=== PATIENT | female | born 1935 | race Caucasian/White ===

== ENCOUNTER 2020-05-23 19:04 | Observation (INO) | payer OTHER, SELFPAY ==
[2020-05-23] VITALS (20 sets, daily range): BP systolic 195–243; BP diastolic 81–149; PULSE 56–67; RESP 13–24; TEMP 36.6; O2SAT 95–99; BMI 23.5
--- NOTE | 2020-05-23 19:10 | DI.RAD.S_ITS ---
PROCEDURE: XR CHEST 1V INDICATIONS: syncope TECHNIQUE: One view of the chest was acquired. COMPARISON: None. FINDINGS: Surgical changes and devices: Heart valve device noted. Lungs and pleura: Diffuse interstitial prominence. No focal consolidation. No pleural effusions or pneumothorax. Mediastinum: Mediastinal contours appear normal. Heart size is normal. Bones and chest wall: No suspicious bony lesions. Overlying soft tissues appear unremarkable. Chronic appearing rib fracture deformities of lateral right ribs. IMPRESSION: Diffuse interstitial prominence which may represent infectious/inflammatory process or possible early pulmonary edema if clinically appropriate. No focal consolidation. Dictated by: Jarvis Kim M.D. on 05/23/2020 at 20:00 Approved by: Jarvis Kim M.D. on 05/23/2020 at 20:02
[2020-05-23 19:25] LABS: Add Manual Diff / Slide Review NO; Basophils Absolute Auto 100 /uL (0-100); Basophils Percent Auto 1.3 % (0-2); Eosinophils Absolute Auto 700 /uL (0-450); Eosinophils Percent Auto 6.5 % (2-4); Hematocrit 34.6 % (36-46); Hemoglobin 12.2 g/dL (12.0-16.0); Lymphocytes Absolute Auto 2100 /uL (1100-4500); Lymphocytes Percent Auto 19.8 % (25-40); Mean Corpuscular HGB Conc 35.1 % (30-36); Mean Corpuscular Hemoglobin 30.7 PG (26-34); Mean Corpuscular Volume 87.3 fL (80-100); Monocytes Absolute Auto 800 /uL (0-900); Monocytes Percent Auto 7.6 % (3-14); Neutrophils Absolute Auto 6700 /uL (1500-7000); Neutrophils Percent Auto 64.8 % (50-75); Platelet Count 227 X10^3/uL (150-400); Red Blood Cell Count 3.96 X10^6/uL (4.0-5.2); White Blood Cell Count 10.4 X10^3/uL (4.5-11.0)
[2020-05-23] MEDS: SODIUM CHLORIDE 0.9% 1,000 ML 1000 ML IV (19:28)
[2020-05-23 19:33] LABS: Prothrombin Time 11.9 SECONDS (10.1-12.7)
[2020-05-23 19:36] LABS: D Dimer 622 ng/mL (<230); Lactate (Lactic Acid) 1.3 mmol/L (0.7-2.1)
[2020-05-23 19:38] LABS: Alanine Aminotransferase 16 IU/L (<35); Albumin 4.1 g/dL (3.5-5.0); Albumin Globulin Ratio 1.3 (1.0-2.8); Alkaline Phosphatase 142 U/L (38-126); Aspartate Aminotransferase 20 IU/L (14-36); BUN Creatinine Ratio 26.3 (6-22); Bilirubin Total 0.5 mg/dL (0.2-1.3); Blood Urea Nitrogen 21 mg/dL (7-17); Calcium 9.2 mg/dL (8.4-10.2); Carbon Dioxide 25 mmol/L (22-32); Chloride 100 mmol/L (98-107); Creatine Kinase 71 U/L (30-135); Estimated Glomerular Filt Rate > 60.0 mL/min (>60); Globulin 3.1 g/dL (1.7-4.1); Glucose 153 mg/dL (80-110); HEMOLYSIS < 15 (0-50); Magnesium 2.1 mg/dL (1.6-2.3); Sodium 132 mmol/L (137-145); Total Protein 7.2 g/dL (6.3-8.2)
--- NOTE | 2020-05-23 19:44 | DI.CT.S_ITS ---
PROCEDURE: CT HEAD/BRAIN WO CON INDICATIONS: syncope, dizziness TECHNIQUE: Noncontrast 4.5 mm thick angled axial sections acquired from the foramen magnum to the vertex, with coronal and sagittal reformats. For radiation dose reduction, the following was used: automated exposure control, adjustment of mA and/or kV according to patient size. COMPARISON: None. FINDINGS: Image quality: Excellent. CSF spaces: Basal cisterns are patent. No extra-axial fluid collections. The ventricles are symmetric in size and shape. Brain: No intracranial bleeds or masses. There is cerebral volume loss for age, with resultant ventricular and sulcal prominence. There are periventricular and deep white matter chronic small vessel ischemic changes. There is intracranial internal carotid artery atherosclerosis. Skull and face: Calvarium and visualized facial bones appear intact, without suspicious lesions. Sinuses: Visualized sinuses and mastoids are clear. IMPRESSION: 1. CT head without acute intracranial abnormalities or acute calvarial fractures. 2. Age-related senescent changes and sequela of chronic small vessel ischemic disease. Dictated by: Jarvis Kmi M.D. on 05/23/2020 at 20:13 Approved by: Jarvis Kim M.D. on 05/23/2020 at 20:14
[2020-05-23 19:49] LABS: NT-proBNP (BNP-Adult 18+) 536 pg/mL (<450); Troponin I 0.013 ng/mL (0.01-0.034)
--- NOTE | 2020-05-23 19:55 | ED_ITS ---
HPI - Syncope General Chief Complaint: Syncope Stated Complaint: syncope Time Seen by Provider: 05/23/20 19:08 Source: patient Mode of arrival: Ambulatory Limitations: no limitations History of Present Illness HPI narrative: 85-year-old female nonsmoker with a history of aortic stenosis, valve repair, coronary artery disease with 2 stents presents with a chief complaint of a witnessed, unprovoked syncopal episode just prior to arrival. She presents by EMS with stable vital signs and is largely in the absence of any symptoms. She had been in her normal state of health with no complaints up until the episode. She denies any changes in her medications or diet. She denies any recent head injuries or trauma. She has had no fever, sore throat, cough, chest pain or shortness of breath. She has been a bit constipated but denies any urinary complaints or diarrhea. Had been standing in the kitchen cooking when she very briefly felt dizzy and lightheaded and called out to her family who used her to the ground and state that she completely lost consciousness for upwards of 2 minutes. Upon waking she relatively quickly returned to her baseline. She did not demonstrate any seizure-like activity. She has not had any upper respiratory complaints such as runny nose, sore throat or ear pain. MD complaint: loss of consciousness and felt faint Onset (ago): minute(s) Duration of episode: 2 -: minutes(s) Prodromal symptoms: lightheaded Witnessed: yes - by bystander Context: other Injuries sustained associated with event: none Current symptoms: back to baseline Treatments prior to arrival: none Related Data Home Medications Medication Instructions Recorded Confirmed amlodipine 2.5 mg PO BEDTIME 05/23/20 05/23/20 aspirin [Adult Aspirin] 300 mg PO DAILY 05/23/20 05/23/20 diltiazem HCl 180 mg PO DAILY 05/23/20 05/23/20 losartan 50 mg PO DAILY 05/23/20 05/23/20 magnesium 500 mg PO DAILY 05/23/20 05/23/20 metformin 500 mg PO DAILY 05/23/20 05/23/20 oxcarbazepine [Oxtellar XR] 600 mg PO DAILY 05/23/20 05/23/20 oxybutynin chloride 10 mg PO DAILY 05/23/20 05/23/20 Allergies Allergy/AdvReac Type Severity Reaction Status Date / Time codeine Allergy Verified 05/23/20 19:27 Review of Systems Constitutional Constitutional: Denies chills, Denies fatigue, Denies fever(s), Denies frequent falls, Denies lethargy and Denies weakness Eyes Eyes: Denies change in vision, Denies eye discharge, Denies irritation and Denies loss of vision ENT Ears, Nose, Mouth, and Throat: Denies change in voice, Reports dizziness, Denies neck pain, Denies sore throat and Denies throat swelling Cardiovascular Cardiovascular: Denies chest pain, Reports syncope, Denies irregular heart rhythm, Reports lightheadedness, Denies palpitations, Denies dyspnea, Denies dyspnea on exertion and Denies orthopnea Respiratory Respiratory: Denies cough, Denies dyspnea, Denies dyspnea on exertion and Denies wheezing Gastrointestinal Gastrointestinal: Denies abdominal pain, Denies change in bowel habits, Denies diarrhea, Denies nausea and Denies vomiting Musculoskeletal Musculoskeletal: Denies neck pain and Denies numbness Integumentary/Breasts Skin/Breast: Denies pruritus, Denies erythema, Denies rash and Denies wounds Neurologic Neurologic: Denies behavioral changes, Denies confusion, Reports dizziness, Reports syncope, Denies frequent falls, Denies loss of vision, Denies numbness and Denies weakness Psychiatric Psychiatric: Denies anxiety, Denies behavioral changes, Denies confusion, Denies depression, Denies homicidal ideation and Denies suicidal ideation Endocrine Endocrine: Denies fatigue, Denies flushing and Denies palpitations Hematologic/Lymphatic Hematologic/Lymphatic: Denies easy bruising Allergic/Immunologic Allergic/Immunologic: Denies urticaria, Denies throat swelling and Denies wheezing Patient History Medical History CAD (coronary artery disease) Urinary incontinence Surgical History History of ankle surgery History of hip surgery History of transcatheter aortic valve replacement (TAVR) Hx of heart artery stent Family History Mother Myocardial infarction Alcoholism Father Myocardial infarction Alcoholism Tobacco use Social History (Updated 05/24/20 @ 00:41 by SOM Barlow) marital status: household members: children lives independently: Yes housing: house pets and animals: Yes Previous occupational history: employment office clerk other: Dog seatbelt use: always Smoking Status: Never smoker alcohol intake: current Smoking Status: Never smoker alcohol intake frequency: holidays/special occasions only Substance Use Type: does not use Exam Narrative Exam Narrative: GENERAL: [85] year old patient appears stated age. Well-nou rished, well-developed patient, in mild distress. HEAD: Atraumatic. Normocephalic. EYES: Pupils equal round and reactive. Extraocular motions intact. No scleral icterus. No injection or drainage. ENT: Dry mucous membranes Nose without bleeding, purulent drainage. Throat without erythema, tonsillar hypertrophy or exudate. Airway patent. NECK: Trachea midline. Non tender CARDIOVASCULAR: Regular rate and rhythm without murmurs, gallops, or rubs. RESPIRATORY: Clear to auscultation. Breath sounds equal bilaterally. No wheezes, rales, or rhonchi. GASTROINTESTINAL: Abdomen soft, non-tender, nondistended. EXTREMITIES: No edema or joint tenderness. BACK: Nontender without deformity or crepitance. No flank tenderness. NEURO: AOx3. SKIN: Poor skin turgor No rash or erythema of visible areas Initial Vital Signs Initial Vital Signs: Vital Signs Temperature 97.9 F 05/23/20 19:19 Pulse Rate 66 05/23/20 19:19 Respiratory Rate 24 05/23/20 19:19 Blood Pressure 225/104 H 05/23/20 19:19 Pulse Oximetry 98 05/23/20 19:19 Course Orders Ordered: ED Orders 05/23/20 19:44 CT head/brain wo con Stat 05/23/20 19:47 COVID19 Stat 05/23/20 20:26 EKG-12 Lead Stat 05/23/20 20:38 CT angio chest PE protocol Stat Acetaminophen (Acetaminophen 325 Mg Tablet) 650 mg PO Q6HR PRN PRN Reason: Fever/Mild Pain (1-3) Amlodipine Besylate (Amlodipine 5 Mg Tablet) 2.5 mg PO BEDTIME [facility] Aspirin (Aspirin Ec 325 Mg Tablet) 325 mg PO DAILY [facility] Dextrose (Dextrose 50 % In Water 25 Gm/50 Ml Syringe) 25 gm IV PRN PRN PRN Reason: Hypoglycemia Diltiazem HCl (Diltiazem Cd 180 Mg Cap) 180 mg PO DAILY [facility] Last Admin: 05/24/20 02:00 Dose: 180 mg Documented by: CLIFF Enoxaparin Sodium (Enoxaparin 40 Mg/0.4 Ml Syringe) 40 mg SUBCUT DAILY [facility] Sodium Chloride (Normal Saline 0.9%) 1,000 mls @ 1,000 mls/hr IV BOLUS PRN PRN Reason: Fluid replacement Last Infusion: 05/24/20 00:05 Dose: 0 mls/hr Documented by: Infusion: 05/23/20 20:31 Dose: 30 mls/hr Documented by: Admin: 05/23/20 19:28 Dose: 1,000 mls/hr Documented by: BASSAM Insulin Aspart (Insulin Aspart 100 Unit/Ml Insuln Pen) 0 unit SUBCUT ACHS [facility]; Protocol Losartan Potassium (Losartan 50 Mg Tablet) 50 mg PO DAILY [facility] Naloxone HCl (Naloxone 0.4 Mg/Ml Vial) 0.2 mg IV Q2MIN PRN PRN Reason: Opiate Reversal Ondansetron HCl (Ondansetron 4 Mg/2 Ml Inj) 4 mg IV Q8HR PRN PRN Reason: Nausea And Vomiting Oxybutynin Chloride (Oxybutynin 5 Mg Er Tab) 10 mg PO DAILY [facility] Discontinued Medications Amlodipine Besylate (Amlodipine 5 Mg Tablet) 2.5 mg PO NOW ONE Stop: 05/23/20 20:38 Last Admin: 05/23/20 20:46 Dose: 2.5 mg Documented by: BASSAM Sodium Chloride (Normal Saline 0.9%) 1,000 mls @ 100 mls/hr IV CONT [facility] Losartan Potassium (Losartan 50 Mg Tablet) 50 mg PO NOW ONE Stop: 05/23/20 21:33 Last Admin: 05/23/20 21:46 Dose: 50 mg Documented by: BASSAM Non-Formulary Medication (Aspirin) 300 mg PO DAILY [facility] Vital Signs Vital signs: Vital Signs - 8 hr 05/23/20 21:10 05/23/20 21:19 05/23/20 21:21 Pulse Rate 60 67 63 Respiratory Rate 21 20 Blood Pressure 243/149 H 221/94 H Pulse Oximetry 98 96 98 05/23/20 21:30 05/23/20 21:31 05/23/20 21:46 Pulse Rate 60 59 L Respiratory Rate 24 17 Blood Pressure 221/97 H 221/97 H Pulse Oximetry 98 98 05/23/20 22:00 05/23/20 22:01 05/23/20 22:30 Pulse Rate 56 L 56 L 59 L Respiratory Rate 14 13 23 Blood Pressure 195/81 H Pulse Oximetry 99 99 95 05/23/20 22:31 05/23/20 22:39 05/23/20 23:00 Pulse Rate 59 L 60 61 Respiratory Rate 22 19 22 Blood Pressure 208/86 H Pulse Oximetry 95 98 95 05/23/20 23:01 Pulse Rate 61 Respiratory Rate 20 Blood Pressure 202/86 H Pulse Oximetry 95 MDM - Syncope Lab Data Result diagrams: 05/24/20 03:43 05/24/20 03:43 Labs: Lab Results 05/23/20 05/23/20 05/23/20 Range/Units 19:18 19:18 19:18 WBC 10.4 (4.5-11.0) X10^3/uL RBC 3.96 L (4.0-5.2) X10^6/uL Hgb 12.2 (12.0-16.0) g/dL Hct 34.6 L (36-46) % MCV 87.3 (80-100) fL MCH 30.7 (26-34) PG MCHC 35.1 (30-36) % RDW 14.0 (11.6-14.8) % Plt Count 227 (150-400) X10^3/uL Neut % (Auto) 64.8 (50-75) % Lymph % (Auto) 19.8 L (25-40) % [place] % (Auto) 7.6 (3-14) % Eos % (Auto) 6.5 H (2-4) % Baso % (Auto) 1.3 (0-2) % Neut # (Auto) 6700 (0095-4519) /uL Lymph # (Auto) 2100 (5704-0592) /uL [place] # (Auto) 800 (0-900) /uL Eos # (Auto) 700 H (0-450) /uL Baso # (Auto) 100 (0-100) /uL PT 11.9 (10.1-12.7) SECONDS INR 1.0 (0.9-1.3) D-Dimer 622 H (<230) ng/mL Sodium 132 L (137-145) mmol/L Potassium 4.0 (3.4-5.1) mmol/L Chloride 100 (98-107) mmol/L Carbon Dioxide 25 (22-32) mmol/L BUN 21 H (7-17) mg/dL Creatinine 0.80 (0.52-1.04) mg/dL Estimated GFR > 60.0 (>60) mL/min BUN/Creatinine Ratio 26.3 H (6-22) Glucose 153 H (80-110) mg/dL Hemoglobin A1c (4.0-6.0) % Lactate (0.7-2.1) mmol/L Calcium 9.2 (8.4-10.2) mg/dL Magnesium 2.1 (1.6-2.3) mg/dL Total Bilirubin 0.5 (0.2-1.3) mg/dL AST 20 (14-36) IU/L ALT 16 (<35) IU/L Alkaline Phosphatase 142 H (38-126) U/L Total Creatine Kinase 71 (30-135) U/L CK-MB (CK-2) TNP CK-MB (CK-2) Rel Index TNP Troponin I 0.013 (0.01-0.034) ng/mL NT-Pro-B Natriuret Pep 536 H (<450) pg/mL Total Protein 7.2 (6.3-8.2) g/dL Albumin 4.1 (3.5-5.0) g/dL Globulin 3.1 (1.7-4.1) g/dL Albumin/Globulin Ratio 1.3 (1.0-2.8) COVID-19 PCR (Negative) 05/23/20 05/23/20 05/23/20 Range/Units 19:18 19:18 19:47 WBC (4.5-11.0) X10^3/uL RBC (4.0-5.2) X10^6/uL Hgb (12.0-16.0) g/dL Hct (36-46) % MCV (80-100) fL MCH (26-34) PG MCHC (30-36) % RDW (11.6-14.8) % Plt Count (150-400) X10^3/uL Neut % (Auto) (50-75) % Lymph % (Auto) (25-40) % [place] % (Auto) (3-14) % Eos % (Auto) (2-4) % Baso % (Auto) (0-2) % Neut # (Auto) (4623-0565) /uL Lymph # (Auto) (5566-1970) /uL [place] # (Auto) (0-900) /uL Eos # (Auto) (0-450) /uL Baso # (Auto) (0-100) /uL PT (10.1-12.7) SECONDS INR (0.9-1.3) D-Dimer (<230) ng/mL Sodium (137-145) mmol/L Potassium (3.4-5.1) mmol/L Chloride (98-107) mmol/L Carbon Dioxide (22-32) mmol/L BUN (7-17) mg/dL Creatinine (0.52-1.04) mg/dL Estimated GFR (>60) mL/min BUN/Creatinine Ratio (6-22) Glucose (80-110) mg/dL Hemoglobin A1c 6.2 H (4.0-6.0) % Lactate 1.3 (0.7-2.1) mmol/L Calcium (8.4-10.2) mg/dL Magnesium (1.6-2.3) mg/dL Total Bilirubin (0.2-1.3) mg/dL AST (14-36) IU/L ALT (<35) IU/L Alkaline Phosphatase (38-126) U/L Total Creatine Kinase (30-135) U/L CK-MB (CK-2) CK-MB (CK-2) Rel Index Troponin I (0.01-0.034) ng/mL NT-Pro-B Natriuret Pep (<450) pg/mL Total Protein (6.3-8.2) g/dL Albumin (3.5-5.0) g/dL Globulin (1.7-4.1) g/dL Albumin/Globulin Ratio (1.0-2.8) COVID-19 PCR Negative (Negative) Point of Care Testing Glucose POC [address] scan - head: Radiologist's Impression: 25 Arash Schilling, DO Find Patient Imaging - Nubia Rubio 85 F 1935 ACTIVITY DATE EXAM STATUS AUTHOR 05/23/20 19:44 Signed Jarvis Kim 05/23/20 19:10 Signed Kim,Jarvis [address] [id number] Scan ReportSigned Patient: Shabnam Rubio#: [id number]: 1935cct:[id number]/Sex: 85 / FDate of Service: 05/23/20Loc: EDAccession Number: [id number] Procedure: CT head/brain wo con Ordering Provider: Arash Schilling D.O. PROCEDURE: CT HEAD/BRAIN WO CON INDICATIONS: syncope, dizziness TECHNIQUE: Noncontrast 4.5 mm thick angled axial sections acquired from the foramen magnum to the vertex, with coronal and sagittal reformats. For radiation dose reduction, the following was used: automated exposure control, adjustment of mA and/or kV according to patient size. COMPARISON: None. FINDINGS: Image quality: Excellent. CSF spaces: Basal cisterns are patent. No extra-axial fluid collections. The ventricles are symmetric in size and shape. Brain: No intracranial bleeds or masses. There is cerebral volume loss for age, with resultant ventricular and sulcal prominence. There are periventricular and deep white matter chronic small vessel ischemic changes. There is intracranial internal carotid artery atherosclerosis. Skull and face: Calvarium and visualized facial bones appear intact, without suspicious lesions. Sinuses: Visualized sinuses and mastoids are clear. IMPRESSION: 1. CT head without acute intracranial abnormalities or acute calvarial fractures. 2. Age-related senescent changes and sequela of chronic small vessel ischemic disease. Dictated by: Jarvis Kim M.D. on 05/23/2020 at 20:13 Approved by: Jarvis Kim M.D. on 05/23/2020 at 20:14 Chest x-ray: Radiologist's Impression: Chart Viewer Diagnostics DATE TYPE STATUS REF RANGE/AUTHOR Hx Today 19:44 Jarvis Kim Today 19:10 Jarvis Kim Zee Rubiovia 85, F1 REG ER, Main ED R10 170.18cm 68.039kg BMI: 23.5kg/m? Syncope Search Chart No Data to Display No Data to Display No Data to Display Today 20:08 Rianna Rubioa 85 F [address] [id number] ReportSigned Patient: Shabnam Rubio#: [id number]: [id number]:[id number]/Sex: 85 / FDate of Service: 05/23/20Loc: EDAccession Number: [id number] Procedure: XR chest 1V Ordering Provider: Arash Schilling D.O. PROCEDURE: XR CHEST 1V INDICATIONS: syncope TECHNIQUE: One view of the chest was acquired. COMPARISON: None. FINDINGS: Surgical changes and devices: Heart valve device noted. Lungs and pleura: Diffuse interstitial prominence. No focal consolidation. No pleural effusions or pneumothorax. Mediastinum: Mediastinal contours appear normal. Heart size is normal. Bones and chest wall: No suspicious bony lesions. Overlying soft tissues appear unremarkable. Chronic appearing rib fracture deformities of lateral right ribs. IMPRESSION: Diffuse interstitial prominence which may represent infectious/inflammatory process or possible early pulmonary edema if clinically appropriate. No focal consolidation. Dictated by: Jarvis Kim M.D. on 05/23/2020 at 20:00 Approved by: Jarvis Kim M.D. on 05/23/2020 at 20:02 [facility] Narrative Medical decision making narrative: 85F with cardiac history presents with a witnessed and unprovoked syncopal episode. She has had elevated BP but it seems unlikely that this was a contributor to her episode. She's had no LYNCH, CP, SOB, Abd Pain. She will require hospitalization for telemetry and possible echo Discharge Plan Departure Patient Disposition: Admitted as Observation Clinical Impression: Hypertensive emergency, Syncope and collapse Admit Date/Time: 05/23/20 23:24 Admit Provider: Anali Quijano
[2020-05-23 20:07] LABS: COVID19 -Nasal RAPID Negative (Negative)
--- NOTE | 2020-05-23 20:15 | PC.NURSE ---
Provider notified and aware of patient BP. Patient denies headache, changes in vision, chest pain, or SOB. States dizziness improved from when first came to department.
--- NOTE | 2020-05-23 20:38 | DI.CT.S_ITS ---
PROCEDURE: CT ANGIO CHEST PE PROTOCOL INDICATIONS: syncope, possible pericardial effusion, hx valve repair TECHNIQUE: After the administration of intravenous contrast, 2 mm thick sections acquired from the pulmonary apices to the posterior costophrenic angles. 3-dimensional maximum intensity projection (MIP) coronal and sagittal reformats were then acquired through the thorax. For radiation dose reduction, the following was used: automated exposure control, adjustment of mA and/or kV according to patient size. COMPARISON: [facility], CR, XR CHEST 1V, 05/23/2020, 19:23. FINDINGS: Image quality: Excellent. Pulmonary arteries: Pulmonary arteries are normal in size, and demonstrate no intraluminal filling defects to suggest central pulmonary embolism. Lungs and pleura: Minimal bibasilar atelectasis. Lungs are otherwise clear. No septal thickening or nodularity. No pleural effusions or pneumothorax. Central and peripheral airways are patent. Mediastinum: Heart size is enlarged, without pericardial effusion. Aortic valve prosthesis is noted. Several prominent mediastinal lymph nodes likely reactive in etiology. No hilar adenopathy. Thoracic aorta is normal in caliber and enhancement. Esophagus is normal in caliber. Moderate-sized hiatal hernia. Bones and chest wall: No suspicious bony lesions. Ribs and thoracic spine appear intact throughout. Thyroid gland is unremarkable. No axillary or supraclavicular adenopathy. Multilevel thoracic spondylosis. No acute compression fractures of the imaged spine. Abdomen: Visualized upper abdominal solid organs appear unremarkable in the early arterial phase of enhancement. IMPRESSION: 1. No acute pulmonary emboli identified. 2. No acute cardiopulmonary abnormalities seen. Diffuse interstitial prominence seen on comparison chest radiograph may be related to hypoventilatory changes. There are no correlating abnormalities seen on CT. 3. A few reactive mediastinal lymph nodes identified. 4. Moderate-sized hiatal hernia. Dictated by: Jarvis Kim M.D. on 05/23/2020 at 22:18 Approved by: Jarvis Kim M.D. on 05/23/2020 at 22:31
[2020-05-23] MEDS: AMLODIPINE 5 MG TABLET 2.5 MG PO (20:46)
[2020-05-23] MEDS: LOSARTAN 50 MG TABLET PO (21:46)
[2020-05-24] VITALS (12 sets, daily range): BP systolic 140–211; BP diastolic 65–99; PULSE 55–76; RESP 13–18; TEMP 36.5–37.4; O2SAT 96–99; BMI 23.5
--- NOTE | 2020-05-24 01:41 | PM.HP.1 ---
History of Present Illness History of Present Illness Date Patient Seen: 05/24/20 Time Patient Seen: 00:01 Chief complaint: syncope Narrative: Nubia Rubio is an 85-year-old female nonsmoker with a history of aortic stenosis, TAVR, coronary artery disease with 2 stents, diabetes and hyperlipidemia presents with a chief complaint of a witnessed, unprovoked syncopal episode just prior to arrival. She was in the kitchen cooking when she began to get dizzy and called for her son who she lives with. Her son assisted her to the floor and called 911. Son stated he believed she was out for 2 minutes. She does not recall loosing consciousness and does not remember the episode. Upon regaining consciousness, she relatively quickly returned to her baseline but again could not recall what happened. She had been in her normal state of health with no complaints up until the episode. She denies any changes in her medications or diet. She denies any recent head injuries or trauma. She has had no fever, sore throat, cough, chest pain or shortness of breath. She has chronic urinary incontinence chronic occasional constipation but denies diarrhea. She states her left leg is chronically swollen since sustaining an ankle injury requiring 16 screws. 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 She sees Dr. Luan, Product Operations Associate in [facility]. She presented to the ED with stable vital signs and is largely in the absence of any symptoms. CT of the head was negative for an acute intracranial process, chest X or was within normal limits. She was very hypertensive when she presented to the emergency department with the presenting blood pressure of 225/104 and was provided her evening blood pressure medications of amlodipine and losartan. Patient was afebrile, her blood pressure has been quite high and currently it is 211/74, heart rate 57, respiratory rate 18, oxygen saturation 99% on room air, she weighs 68 kg with a BMI of 23.5. She is mildly anemic with hematocrit of 34.6, age related D timer is within normal limits, she is slightly hyponatremic at 132, glucose is 153, lactate is 1.3, calcium 9.2, magnesium 2.1, alk-phos was elevated at 142, and COVID PCR was negative. Patient History Medical History CAD (coronary artery disease) Urinary incontinence Surgical History History of ankle surgery History of hip surgery History of transcatheter aortic valve replacement (TAVR) Hx of heart artery stent Family & Social History Family History Mother Myocardial infarction Alcoholism Father Myocardial infarction Alcoholism Tobacco use Social History: household members children Prior Living Arrangements House lives independently Yes other Dog Safety & Behavioral: Feels Safe in Current Yes Environment Been Physically Hurt or No Threatened By a Person Suicidal Ideation Description None Tobacco & Substance use: Smoking Status Never smoker alcohol intake current alcohol intake frequency holiday/special occasion Substance Use Type does not use Meds Home Medications and Allergies Home Medications Medication Instructions Recorded Confirmed Type amlodipine 2.5 mg PO BEDTIME 05/23/20 05/23/20 History aspirin [Adult Aspirin] 300 mg PO DAILY 05/23/20 05/23/20 History diltiazem HCl 180 mg PO DAILY 05/23/20 05/23/20 History losartan 50 mg PO DAILY 05/23/20 05/23/20 History magnesium 500 mg PO DAILY 05/23/20 05/23/20 History metformin 500 mg PO DAILY 05/23/20 05/23/20 History oxcarbazepine [Oxtellar XR] 600 mg PO DAILY 05/23/20 05/23/20 History oxybutynin chloride 10 mg PO DAILY 05/23/20 05/23/20 History Allergies Allergy/AdvReac Type Severity Reaction Status Date / Time codeine Allergy Verified 05/23/20 19:27 Review of Systems Review of Systems ROS: Yes All systems reviewed with the patient and are negative except as otherwise documented Exam Vital Signs (past 8 hours): - 05/23/20 19:19 05/23/20 19:37 05/23/20 20:07 Temperature 97.9 F Pulse Rate 66 56 L 57 L Respiratory Rate 24 20 22 Blood Pressure 225/104 H Pulse Oximetry 98 98 96 05/23/20 20:08 05/23/20 20:30 05/23/20 20:31 Temperature Pulse Rate 56 L 56 L 56 L Respiratory Rate 14 24 24 Blood Pressure 227/111 H 235/95 H Pulse Oximetry 97 98 98 05/23/20 21:10 05/23/20 21:19 05/23/20 21:21 Temperature Pulse Rate 60 67 63 Respiratory Rate 21 20 Blood Pressure 243/149 H 221/94 H Pulse Oximetry 98 96 98 05/23/20 21:30 05/23/20 21:31 05/23/20 21:46 Temperature Pulse Rate 60 59 L Respiratory Rate 24 17 Blood Pressure 221/97 H 221/97 H Pulse Oximetry 98 98 05/23/20 22:00 05/23/20 22:01 05/23/20 22:30 Temperature Pulse Rate 56 L 56 L 59 L Respiratory Rate 14 13 23 Blood Pressure 195/81 H Pulse Oximetry 99 99 95 05/23/20 22:31 05/23/20 22:39 05/23/20 23:00 Temperature Pulse Rate 59 L 60 61 Respiratory Rate 22 19 22 Blood Pressure 208/86 H Pulse Oximetry 95 98 95 05/23/20 23:01 05/23/20 23:30 05/24/20 00:00 Temperature Pulse Rate 61 58 L 55 L Respiratory Rate 20 21 13 Blood Pressure 202/86 H 207/91 H 181/98 H Pulse Oximetry 95 99 97 05/24/20 00:25 Temperature 98.5 F Pulse Rate 57 L Respiratory Rate 18 Blood Pressure 211/74 H Pulse Oximetry 99 Oxygen Delivery Method Room Air Oxygen Flow Rate 0 Narrative Exam Narrative: Gen: Alert, oriented, well-developed 85 y.o. female, slightly anxious HEENT: normocephalic, atraumatic, conjunctiva clear, sclera non-icteric, oral mucosa pink and moist Neck: supple, full ROM, no JVD, trachea is midline Resp: Lungs CTA, non-labored breathing CV: RRR, no murmur or rubs Abd: soft, non-tender, normoactive BTs Skin: no lesions or rashes, dry and intact Neuro: Alert and oriented X 4 w/no focal deficits. Speech clear and coherent. Extremities: left lower leg larger diameter than right with 1+ pitting edema, moves all 4 extremities, is ambulatory, negative Luis Alberto?s sign Psyche: normal mood and affect. Objective Labs Result Diagrams: 05/23/20 19:18 05/23/20 19:18 Labs: Laboratory Results - last 24 hr 05/23/20 05/23/20 05/23/20 19:18 19:18 19:18 WBC 10.4 RBC 3.96 L Hgb 12.2 Hct 34.6 L MCV 87.3 MCH 30.7 MCHC 35.1 RDW 14.0 Plt Count 227 Neut % (Auto) 64.8 Lymph % (Auto) 19.8 L [place] % (Auto) 7.6 Eos % (Auto) 6.5 H Baso % (Auto) 1.3 Neut # (Auto) 6700 Lymph # (Auto) 2100 [place] # (Auto) 800 Eos # (Auto) 700 H Baso # (Auto) 100 PT 11.9 INR 1.0 D-Dimer 622 H Sodium 132 L Potassium 4.0 Chloride 100 Carbon Dioxide 25 BUN 21 H Creatinine 0.80 Estimated GFR > 60.0 BUN/Creatinine Ratio 26.3 H Glucose 153 H Lactate Calcium 9.2 Magnesium 2.1 Total Bilirubin 0.5 AST 20 ALT 16 Alkaline Phosphatase 142 H Total Creatine Kinase 71 CK-MB (CK-2) TNP CK-MB (CK-2) Rel Index TNP Troponin I 0.013 NT-Pro-B Natriuret Pep 536 H Total Protein 7.2 Albumin 4.1 Globulin 3.1 Albumin/Globulin Ratio 1.3 COVID-19 PCR 05/23/20 05/23/20 19:18 19:47 WBC RBC Hgb Hct MCV MCH MCHC RDW Plt Count Neut % (Auto) Lymph % (Auto) [place] % (Auto) Eos % (Auto) Baso % (Auto) Neut # (Auto) Lymph # (Auto) [place] # (Auto) Eos # (Auto) Baso # (Auto) PT INR D-Dimer Sodium Potassium Chloride Carbon Dioxide BUN Creatinine Estimated GFR BUN/Creatinine Ratio Glucose Lactate 1.3 Calcium Magnesium Total Bilirubin AST ALT Alkaline Phosphatase Total Creatine Kinase CK-MB (CK-2) CK-MB (CK-2) Rel Index Troponin I NT-Pro-B Natriuret Pep Total Protein Albumin Globulin Albumin/Globulin Ratio COVID-19 PCR Negative Assessment & Plan Assessment & Plan narrative: Nubia Rubio will be observed overnight on telemetry for further evaluation of a syncopal episode and management of what appears to be refractory hypertension. Syncopal episode, resolved when admitted -patient will undergo at stroke series -limited echo, I have requested that we obtain a copy of the echo that was done 2 months ago per the patient and her son -question if oxcarbazepine may have contributed to her syncope as dizziness is a common reaction Hypertensive urgency, acute, present on admission -the patient received amlodipine 2.5 mg and losartan 50 mg in the ED -the patient also takes diltiazem 180 mg and she will receive this tonight -cardiac telemetry Coronary artery disease, chronic -See hypertensive urgency -continue aspirin 325 mg daily. Her medical record indicates that she was taking 300 mg which does not exist in aspirin dosages -fasting lipid panel in the morning Mild hyponatremia, acute present on admission -hyponatria is a possible side effect of oxycarbazapine -She received a 1 liter bolus in the ED -recheck in the am Diabetes type 2 -she normally takes metformin 500 mg once daily and this will be held -A1c is pending -she will be on a low-dose correctional insulin VTE prophylaxis: Wells risk score: 0 Enoxaparin 40 mg subQ daily Consults: none Patient is observation status as her stay is not likely to exceed 2 midnights. FEN: saline lock, carb controlled diet , BMP and magnesium in the am. Dispo: probable discharge to home with outpatient follow-up Code Status: full code as discussed with patient and her son Scores Wells' Criteria for PE Clinical signs and symptoms of DVT: No PE is #1 Dx or equally likely: No Heart rate > 100: No Immobilization at least 3 days or surg in previous 4 weeks: No History of PE or DVT: No Hemoptysis: No Malignancy w/Treatment within 6 months or palliative: No Wells' PE Score total: 0 Quality VTE Deep Vein Thrombosis/Pulmonary Embolism Present on Admission: No
[2020-05-24 01:52] LABS: Hemoglobin A1C% w Est Avg Glu 6.2 % (4.0-6.0)
[2020-05-24] MEDS: dilTIAZem CD 180 MG CAP PO (02:00)
--- NOTE | 2020-05-24 02:20 | PC.NURSE ---
Addendum entered by Donna Colon R.N. 05/24/20 04:30: 0428: spoke with SOM Barlow of pt troponin increase from 0.0.13 to 0.047. provider stated it is still within normal limits and no nwe orders were placed Original Note: Pt arrived via stretcher at room 206. Pt was able to ambulate from stretcher to bed. Pt denies pain, dizziness, blurry vision, headache, chest pain despite her high BP. SOM Barlow, provider ordered diltiazem now. skin check done with JOEY Humphreys, call light explained to pt. Also notified pt that she will be on bed alarm, pt verbalized understanding and stated that her belongings was sent home with Levi, pt son, and she just ahs jewelries on her. Call light within reach, bed in lowest position. will continue to monitor
[2020-05-24 03:54] LABS: Add Manual Diff / Slide Review NO; Basophils Absolute Auto 100 /uL (0-100); Eosinophils Absolute Auto 500 /uL (0-450); Eosinophils Percent Auto 5.5 % (2-4); Hemoglobin 11.7 g/dL (12.0-16.0); Lymphocytes Absolute Auto 1600 /uL (1100-4500); Lymphocytes Percent Auto 16.4 % (25-40); Mean Corpuscular HGB Conc 34.5 % (30-36); Mean Corpuscular Hemoglobin 30.2 PG (26-34); Mean Corpuscular Volume 87.6 fL (80-100); Monocytes Absolute Auto 700 /uL (0-900); Monocytes Percent Auto 7.7 % (3-14); Neutrophils Absolute Auto 6600 /uL (1500-7000); Neutrophils Percent Auto 69.4 % (50-75); Platelet Count 213 X10^3/uL (150-400); Red Blood Cell Count 3.89 X10^6/uL (4.0-5.2); White Blood Cell Count 9.6 X10^3/uL (4.5-11.0)
[2020-05-24 04:04] LABS: BUN Creatinine Ratio 23.8 (6-22); Blood Urea Nitrogen 15 mg/dL (7-17); Calcium 8.7 mg/dL (8.4-10.2); Carbon Dioxide 27 mmol/L (22-32); Chloride 103 mmol/L (98-107); Estimated Glomerular Filt Rate > 60.0 mL/min (>60); Glucose 136 mg/dL (80-110); HEMOLYSIS < 15 (0-50); Sodium 134 mmol/L (137-145)
[2020-05-24 04:09] LABS: Cholesterol 233 mg/dL (140-199); HDL Cholesterol 56 mg/dL (40-60); LDL Cholesterol Calculated 148 mg/dL (<100); Triglycerides 145 mg/dL (35-150)
[2020-05-24 04:16] LABS: Troponin I 0.047 ng/mL (0.01-0.034)
[2020-05-24] MEDS: LOSARTAN 50 MG TABLET PO ×2 (05:37→21:05)
--- NOTE | 2020-05-24 07:21 | DI.ECHO.S_ITS ---
[facility] +---------+ : : [address] [place] : : : : [id number] : : : : Phone: [phone]+ Echocardiogram Report + + :Name: MARIBELL DURANT Study Date: 05/24/2020 Height: 67 in : :[facility] Weight: 150 lb : : Gender: Female BSA: 1.8 m2 : :: 1935 Age: 85 yrs BP: 181/98 mmHg: :Reason For Study: SYNCOPE : :Ordering Physician: PIEDAD, : :YAEL Performed By: Arely Willis : :Referring: YAEL HERBERT : + + Interpretation Summary The left ventricle is normal in size and wall thickness. Left ventricular systolic function is normal. The ejection fraction is estimated to be 55-60%. Mild hypokinesis along the basal to mid inferolateral wall. The right ventricle is normal in size and function. The right ventricular systolic pressure is estimated to be at least 34 mmHg based on an estimated right atrial pressure of 3 mm Hg. The left atrium is moderately dilated. Right atrial size is normal. There is moderate mitral annular calcification. There is mild mitral stenosis. The mitral valve mean gradient is 3.8 mmHg. There is moderate mitral regurgitation. There is a bioprosthetic aortic valve. The peak aortic velocity is 3.0 m/sec. There is no other significant valvular heart disease. The ascending aorta is mildly enlarged. The aortic arch is mildly enlarged. Procedure: A two-dimensional transthoracic echocardiogram with color flow and Doppler was performed. The study quality was technically adequate. There is no prior echocardiogram noted for this patient. The patient was in sinus bradycardia with heart rates between 55-61 bpm during the exam. Left Ventricle: The left ventricle is normal in size and wall thickness. Left ventricular systolic function is normal. The ejection fraction is estimated to be 55-60%. Mild hypokinesis along the basal to mid inferolateral wall. Diastolic function could not be accurately assessed due to contradictory data. Right Ventricle: The right ventricle is normal in size and function. Atria: The left atrium is moderately dilated. Right atrial size is normal. There is no Doppler evidence for an interatrial shunt. Mitral Valve: There is moderate mitral annular calcification. There is mild mitral stenosis. The mitral valve mean gradient is 3.8 mmHg. There is moderate mitral regurgitation. Aortic Valve: There is a bioprosthetic aortic valve. The peak aortic velocity is 3.0 m/sec. There is trace aortic regurgitation. Tricuspid Valve: The tricuspid valve is normal in structure and function. There is mild tricuspid regurgitation. The right ventricular systolic pressure is estimated to be at least 34 mmHg based on an estimated right atrial pressure of 3 mm Hg. Pulmonic Valve: The pulmonic valve is not well seen, but is grossly normal. There is trace pulmonic regurgitation. There is no other significant valvular heart disease. Great Vessels: The aortic root is not well visualized but is probably normal size. The ascending aorta is mildly enlarged. The aortic arch is mildly enlarged. The IVC is of normal diameter and collapses greater than 50% with a sniff. This suggests a low right atrial pressure of 3 mm Hg. Pericardium/ Pleura There is no pericardial effusion. There is no pleural effusion. MMode/2D Measurements & Calculations LVIDd: 4.9 cm LVOT diam: 2.0 cm LVIDs: 3.5 cm asc Aorta Diam: 3.9 cm FS: 29.1 % Ao Arch Diam (Prox Trans): 3.4 cm EPSS: 1.7 cm IVSd: 0.77 cm LVPWd: 0.93 cm LV leong. diameter/BSA (cm/m^2): 2.7 LV sys. diameter/BSA (cm/m^2): 1.9 LA A2 area: 26.4 cm2 RA long axis: 4.2 cm LA A4 area: 24.6 cm2 RA area: 12.3 cm2 LA length (vol): 6.3 cm RA vol: 30.5 ml LA vol: 87.0 ml RA : 17.0 ml/m2 LA vol index: 48.6 ml/m2 IVC diam: 1.6 cm RVD1 (basal): 3.2 cm TAPSE: 2.2 cm Doppler Measurements & Calculations Ao V2 max: 303.0 cm/sec LVOT Max Jerome: 116.9 cm/sec Ao V2 mean: 213.3 cm/sec LV V1 max P.5 mmHg Ao max P.7 mmHg LV V1 VTI: 29.6 cm Ao mean P.6 mmHg GEMINI(I,D): 1.2 cm2 Ao V2 VTI: 77.1 cm GEMINI(V,D): 1.2 cm2 sev ratio: 0.38 GEMINI indexed to BSA (cm^2/m^2): 0.69 MV E max jerome: 120.9 cm/sec TR max jerome: 277.9 cm/sec MV A max jerome: 164.0 cm/sec TR max P.9 mmHg MV E/A: 0.74 PA V2 max: 119.9 cm/sec Med Peak E' Jerome: 4.5 cm/sec PA V2 mean: 68.6 cm/sec E/E' med: 26.7 PA mean P.4 mmHg Lat Peak E' Jerome: 6.5 cm/sec PA pr(Accel): 34.5 mmHg E/E' lat: 18.7 E/e' average: 22.7 MVA(VTI): 1.4 cm2 MV V2 mean: 91.5 cm/sec SV(LVOT): 94.8 ml MV mean P.8 mmHg MV V2 VTI: 65.8 cm Reading Physician:02:46 PM
[2020-05-24] MEDS: INSULIN ASPART 100 UNIT/ML INSULN PEN SUBCUT ×3 (08:28→21:06)
[2020-05-24] MEDS: ASPIRIN EC 325 MG TABLET PO (08:34)
[2020-05-24] MEDS: OXYBUTYNIN 5 MG ER TAB 10 MG PO (08:34)
[2020-05-24] MEDS: AMLODIPINE 5 MG TABLET PO ×2 (08:34→11:04)
[2020-05-24] MEDS: ENOXAPARIN 40 MG/0.4 ML SYRINGE SUBCUT (08:34)
[2020-05-24 09:51] LABS: Creatine Kinase 70 U/L (30-135)
[2020-05-24 10:04] LABS: Troponin I 0.039 ng/mL (0.01-0.034)
--- NOTE | 2020-05-24 10:05 | PT.IIE ---
Surgical History (Last Reviewed 05/24/20 @ 01:55 by SOM Barlow) History of ankle surgery History of hip surgery History of transcatheter aortic valve replacement (TAVR) Hx of heart artery stent Medical History (Last Reviewed 05/24/20 @ 01:55 by SOM Barlow) CAD (coronary artery disease) Urinary incontinence Physical Therapy Inpatient Evaluation/Re-Eval M1 PT/OT-IP Prior Functional Status Start: 05/24/20 11:51 Freq: NEEDED Status: Active Protocol: Document 05/24/20 10:05 AB (Rec: 05/24/20 12:09 AB [email or web address]) Medical Review Prior Functional Status Medical History Reviewed Yes Communication able to make needs known Mobility and Gait pt stated that she is independent with all mobilities and ambulation without AD but occasionally uses a quad cane for outdoor mobility. stated that she still drives Social History Household Members children Living Arrangements House Number of Floors (Floors) Two Floors Number of Stairs To Enter/Railing? pt stays on main level of the house has 3 steps to enter with bilateral rails Home Environment Walk in Shower Home Equipment Four Wheel Walker,Quad Cane, Raised Toilet Seat w/Armrests, Shower Seat without Backrest, Hand Held Shower,Grab Bars In Shower M2 PT-IP Current Condition Start: 05/24/20 11:51 Freq: NEEDED Status: Active Protocol: Document 05/24/20 10:05 AB (Rec: 05/24/20 12:09 AB [email or web address] Physical Therapy Current Condition Current Condition Evaluation Date 05/24/20 Treatment Diagnosis syncope; difficulty in walking Onset Date 05/23/20 Precautions Other Precautions falls M3 PT-IP Subjective Start: 05/24/20 11:51 Freq: NEEDED Status: Active Protocol: Document 05/24/20 10:05 AB (Rec: 05/24/20 12:09 AB [email or web address]) Subjective Physical Therapy Visit Type Type Initial Evaluation Visit Start Time 10:05 Visit Stop Time 10:35 Total Visit Minutes 30 Number of TAX STAFF ACCOUNTANT Visits 0 Physical Therapy Visit Comments Patient Comments pt is agreeable to do PT; requested to use the toilet M4 PT-IP Mobility and Gait Start: 05/24/20 11:51 Freq: NEEDED Status: Active Protocol: Document 05/24/20 10:05 AB (Rec: 05/24/20 12:09 AB [id number]) PT-Bed Mobility Assessment Supine to Sit Supine to Sit Standby Assistance PT-Transfer Assessment Sit to and From Stand Sit to and from Stand Minimal Assistance,1 Person Assistance,Use of Upper Extremities Equipment Transfer Assistive Device None,Gait Belt Orthotic/Prosthetic Devices or Brace: No Transfers Transfer Destination Toilet Transfer Technique ambulated without AD Transfer Ability Level of Assist Contact Guard Assistance, Minimal Assistance,1 Person Assistance,Use of Upper Extremities Comments Mobility Comments BP monitored. BP /83 . completed bed mobility supine to sit SBA. BP in sittin/93. pt was able to tolerate sitting on EOB without any complaints. BP after ~ 2 min sittin/99. pt requested to use the toilet. completed sit to stand min A and cues. Pt was able to maintain standing CGA to min A without AD. BP in standin/81 . after 2 min of standin/72. ambulated to the toilet without AD min A and cues. required assist with hygiene care and brief managment. completed sit to stand from the toilet min A and ambulated towards the sink CGA without AD and was able to maintain standing leaning against the sink SBA while completing handwashing. agreed to sit up on chair and ambulated to the chair without AD CGA. positioned on chair. BP checked: 148/82. call light and table placed within reach. Gait Assessment Gait Gait Assistance Required: Contact Guard Assist,Minimum Assistance Distance (Feet) 12 Able to Maintain Weight Bearing Status Yes During Gait Assistive Devices Assistive Device None,Gait Belt Orthotic/Prosthetic Devices or Brace: No Gait Deviations General Gait Pattern Antalgic,Decreased Stride Length,Decreased Feet Clearance,Step-to Gait Factors Limiting Gait Function Factors Limiting Gait Function Decreased Activity Tolerance, Decreased Strength,Difficulty Following Directions,Poor Balance,Poor Safety Awareness, Respiratory Distress Comments Gait Comments pls refer to mobility section for details. pt presents with unsteady gait but was steadier towards end of tx. PT-Balance Assessment Sitting Balance and Reactions Static Sitting Balance Ability Good Dynamic Sitting Balance Ability Good Standing Balance and Reactions Static Standing Balance Ability Fair Dynamic Standing Balance Ability Fair Device Used without AD M5 PT-IP Objective Assessments Start: 05/24/20 11:51 Freq: NEEDED Status: Active Protocol: Document 11/19/20 10:05 AB (Rec: 05/24/20 12:09 AB [id number]) Orientation Orientation/Cognition Level of Alertness Alert Orientation Name Language Function Ability Hard of Hearing Safety Awareness Decreased Safety Awareness Gross Range of Motion Lower Extremity ROM Assessment Within Functional Limits Strength Lower Extremity Strength Hip 4-/5 Knee 4-/5 Muscle Tone Muscle Tone WNL Yes M6 PT-IP Treatment Start: 05/24/20 11:51 Freq: NEEDED Status: Active Protocol: Document 05/24/20 10:05 AB (Rec: 05/24/20 12:09 AB [email or web address]) Physical Therapy Treatment Education Education Provided Safety M7 PT-IP Assessment and Plan Start: 05/24/20 11:51 Freq: NEEDED Status: Active Protocol: Document 05/24/20 10:05 AB (Rec: 05/24/20 12:09 AB [email or web address]) PT Summary Assessment and Plan Potential Rehabilitation Potential Good Status of Condition at Evaluation Stable Summary Impairments Pain,ROM,Strength,Balance, Coordination,Cognition,Bed Mobility,Transfers,Gait, Activity Tolerance Assessment Summary pt requiring CGA to min A with mobility. will assess ambulation using 4WW if appropriate if pt continues to be unsteady without AD. pt lives with her family and stated that they will be able to assist her if needed. will continue to assess progress and if appropriate will conduct caregiver training. stair climbing training also will be completed prior to d/c . Goals Bed Mobility Goal Independent Transfer Goal Independent,Four Wheeled Walker Gait Goal Independent,Four Wheel Walker Gait Distance 150 Other Goals improve ambulation without AD / quad cane 100 ft SBA up/down 3 steps B rails SBA Days to Meet Goals 5 Frequency of Treatment Frequency Of Treatment Once a Day Treatment Plan Physical Therapy Treatment Plan Bed Mobility Training,Transfer Training,Gait Training, Therapeutic Exercise,Balance Retraining,Discharge Planning, Hot or Cold Pack,Neuromuscular Re-ed,Coordination Retraining Recommendations To Nursing Amount of Assist Needed 1 Person Assist Discharge Recommendations PT Discharge Recommendations Home with Assistance Transportation Needs at Discharge Private Vehicle
[2020-05-24 12:50] LABS: Appearance Urine UA CLOUDY; Bilirubin Urine UA NEGATIVE (NEGATIVE); Color Urine UA YELLOW; Glucose Urine UA NEGATIVE (Negative); Ketones Urine UA NEGATIVE (NEGATIVE); Leukocyte Esterase Urine UA TRACE (NEGATIVE); Nitrite Urine UA POSITIVE (Negative); Occult Blood Urine UA TRACE-LYSED (Negative); Protein Urine UA 2+ (Negative); Specific Gravity Urine UA 1.015 (1.000-1.035); Urobilinogen Urine UA 0.2 E.U./dL (0.2)
[2020-05-24 12:54] LABS: pH Urine UA 6.5 (4.5-8.0)
[2020-05-24 12:59] LABS: Bacteria Urine Many (>30); Culture Indicated Urine Specimen Cultured; RBC Urine 0-1/HPF (0-5/HPF); WBC Urine 1-5/HPF (0-5/HPF)
--- NOTE | 2020-05-24 12:59 | CM.IDA ---
Initial DCP Assessment Note Patient is an 85 yo female, resident of [place]. Patient presents after a syncopal episode at home, currently receiving medical/heart w/u, patient followed by object oriented developer Dr. Luna, Ski Production Supervisor in [facility] PCP: Still needs Payer: Sabrina Viramontes Met w/patient this morning to introduce role. Patient is in good spirits this morning. Patient, son and DIL live together, have recently moved from the [facility] to [place]. Patient appreciative for help from her son/DIL (whom are retired), explains she is still able to drive and does most ADLs independently still. Patient eager to return home w/son and DIL when medically cleared, she does not expect to need anything from this PRECONSTRUCTION MANAGER. Patient cleared by PT for return home w/family; cg training might assist in safe transition home (per PT note). P: DC home expected w/close outpatient medical f/u, via family pov This PRECONSTRUCTION MANAGER following closely in the case that any DC needs or concerns arise. MISTY Chu Discharge Planning/Care Management CM Discharge Assessment Start: 05/24/20 12:57 Freq: Status: Active Protocol: Document 05/24/20 12:57 TAWANNA (Rec: 05/24/20 12:59 TAWANNA [id number]) Discharge Planning Assessment Assigned Legal Job Titles MISTY Magana DPOA/Assigned Designee Name sydni Lucas Contact Information [phone] Advance Directives? No History Provided By Patient Prior Living Arrangements House Household Members children Type of transporation used prior to Drives own vehicle admit Independent with ADL's Yes Is patient alert and oriented? Yes Barriers to Discharge No Comment Cleared by PT for return home w/family Discharge Plan Home Transportation Arrangement Family Referrals Initiated None needed
--- NOTE | 2020-05-24 13:58 | PC.NURSE ---
Day Shift- 1140 tele reading from CLERICAL ASSIGNER was Sinus Bradycardia and Sinus Arrythmia, heart rate 57. Dr. Das notified at 1355, will continue to monitor, now new orders. Per Sports Complex Attendant, pt has history of A-Fib. Orthostatic BP/Pulse done by CONSTRUCTION IRONWORKER at 1005, see vital sign flowsheet. Urine sample sent to lab per order at 1154. Pt able to make her needs known via call light, OX4, Bed/chair alarm used.
[2020-05-24] MEDS: ATORVASTATIN 20 MG TABLET 80 MG PO (21:05)
[2020-05-24] MEDS: SODIUM CHLORIDE 0.9% FLUSH 10 ML IV (21:09)
[2020-05-25 02:07] VITALS: BP 174/79; PULSE 61; RESP 16; TEMP 37.2; O2SAT 93
[2020-05-25 02:41] VITALS: O2SAT 93
[2020-05-25 04:57] VITALS: BP 136/67; BP 150/85; BP 174/72; PULSE 58; PULSE 70; PULSE 71
[2020-05-25 05:00] VITALS: RESP 20; TEMP 37.1
[2020-05-25 06:40] LABS: BUN Creatinine Ratio 28.6 (6-22); Blood Urea Nitrogen 24 mg/dL (7-17); Calcium 8.6 mg/dL (8.4-10.2); Carbon Dioxide 27 mmol/L (22-32); Chloride 102 mmol/L (98-107); Estimated Glomerular Filt Rate > 60.0 mL/min (>60); Glucose 136 mg/dL (80-110); HEMOLYSIS < 15 (0-50); Magnesium 2.2 mg/dL (1.6-2.3); Potassium 4.2 mmol/L (3.4-5.1); Sodium 131 mmol/L (137-145)
[2020-05-25 07:23] LABS: TSH w/ Reflex to FT4 2.49 uIU/mL (0.47-4.68)
[2020-05-25 07:33] VITALS: BP 149/66; PULSE 54; RESP 14; TEMP 36.3; O2SAT 95
[2020-05-25] MEDS: INSULIN ASPART 100 UNIT/ML INSULN PEN SUBCUT (09:31)
[2020-05-25] MEDS: AMLODIPINE 5 MG TABLET 10 MG PO (09:32)
[2020-05-25] MEDS: LOSARTAN 50 MG TABLET PO (09:32)
[2020-05-25] MEDS: OXYBUTYNIN 5 MG ER TAB 10 MG PO (09:32)
[2020-05-25] MEDS: OXCARBAZEPINE 600 MG 1 EACH PO (09:32)
[2020-05-25] MEDS: dilTIAZem CD 180 MG CAP PO (09:32)
[2020-05-25] MEDS: ASPIRIN EC 325 MG TABLET PO (09:32)
[2020-05-25] MEDS: SODIUM CHLORIDE 0.9% FLUSH 10 ML IV (09:33)
[2020-05-25] MEDS: ENOXAPARIN 40 MG/0.4 ML SYRINGE SUBCUT (09:33)
--- NOTE | 2020-05-25 09:38 | PT.IPTN ---
Physical Therapy Treatment Note M2 PT-IP Current Condition Start: 05/24/20 11:51 Freq: NEEDED Status: Active Protocol: Document 05/25/20 09:44 MA (Rec: 05/25/20 09:59 MA [email or web address]) Physical Therapy Current Condition Current Condition Evaluation Date 05/24/20 Treatment Diagnosis syncope; difficulty in walking Onset Date 05/23/20 Precautions Other Precautions falls M3 PT-IP Subjective Start: 05/24/20 11:51 Freq: NEEDED Status: Active Protocol: Document 05/25/20 09:44 MA (Rec: 05/25/20 09:59 MA [email or web address]) Subjective Physical Therapy Visit Type Type Treatment Note Visit Start Time 09:10 Visit Stop Time 09:38 Total Visit Minutes 28 Number of [employer] Visits 1 Physical Therapy Visit Comments Patient Comments pt is agreeable to do PT; requested to use the toilet and have nurse administer medications M4 PT-IP Mobility and Gait Start: 05/24/20 11:51 Freq: NEEDED Status: Active Protocol: Document 05/25/20 09:44 MA (Rec: 05/25/20 09:59 MA [email or web address]) PT-Bed Mobility Assessment Supine to Sit Supine to Sit Contact Guard Assistance PT-Transfer Assessment Sit to and From Stand Sit to and from Stand Contact Guard Assistance Equipment Transfer Assistive Device None,Gait Belt Orthotic/Prosthetic Devices or Brace: No Transfers Transfer Destination Toilet Transfer Technique ambulated without AD Transfer Ability Level of Assist Contact Guard Assistance Comments Mobility Comments BP 189/66 seated in chair after going to bathroom. Nurse administered BP medication during tx and approved therapy . Pt was able to sit up in bed using therapists hand to pull herself up. Seated EOB, SBA. Sit<>Stand CGA x3 from room chair. Standing marches at chair, Min A for balance, no AD. Gait Assessment Gait Gait Assistance Required: Contact Guard Assist Distance (Feet) 300 Able to Maintain Weight Bearing Status Yes During Gait Assistive Devices Assistive Device None,Gait Belt,4 Wheeled Walker Orthotic/Prosthetic Devices or Brace: No Gait Deviations General Gait Pattern Decreased Stride Length, Decreased Feet Clearance,Step- to Gait Factors Limiting Gait Function Factors Limiting Gait Function Decreased Activity Tolerance, Decreased Strength,Difficulty Following Directions,Poor Balance,Poor Safety Awareness, Respiratory Distress Comments Gait Comments 2x150 feet with seated rest break in between. First lap used 4WW, second lap only CGA. Pt decreased speed when not using walker but still only needed CGA. Dr and nurse waiting in room upon completion of second walk. Therapist left pt in room chair to talk with providers and ended treatment session. Stair Climbing Assessment Evaluation Level of Assist On Stairs Contact Guard Assistance,1 Person Assistance Devices Stair Climbing Assistive Devices None,Left Railing,Right Railing Technique/Endurance Stair Climbing Direction Ascend and Descend Stair Climbing Technique Step to Step Number of Steps Climbed 3 Stair Climbing Set # Repetitions (reps) 1 Comments Stair Climbing Comments Useed single step due to nursing moving therapy stairs to new location, pt stepping up and back down 3x leading with RLE. Rail on R, Therapists hand used on L for balance. PT-Balance Assessment Sitting Balance and Reactions Static Sitting Balance Ability Good Dynamic Sitting Balance Ability Good Standing Balance and Reactions Static Standing Balance Ability Fair Dynamic Standing Balance Ability Fair Device Used without AD M5 PT-IP Objective Assessments Start: 05/24/20 11:51 Freq: NEEDED Status: Active Protocol: Document 05/25/20 09:44 MA (Rec: 05/25/20 09:59 MA [email or web address]) Orientation Orientation/Cognition Level of Alertness Alert Orientation Name Language Function Ability Hard of Hearing Safety Awareness Decreased Safety Awareness M6 PT-IP Treatment Start: 05/24/20 11:51 Freq: NEEDED Status: Active Protocol: Document 05/25/20 09:44 MA (Rec: 05/25/20 09:59 MA [email or web address]) Physical Therapy Treatment Other Treatments Other Treatment Performed LAQ seated in chair-SBA; standing marches-no AD, CGA. M7 PT-IP Assessment and Plan Start: 05/24/20 11:51 Freq: NEEDED Status: Active Protocol: Document 05/25/20 09:44 MA (Rec: 05/25/20 09:59 MA [email or web address]) PT Summary Assessment and Plan Potential Rehabilitation Potential Good Status of Condition at Evaluation Stable Summary Impairments Pain,ROM,Strength,Balance, Coordination,Cognition,Bed Mobility,Transfers,Gait, Activity Tolerance Assessment Summary Pt requires CGA for gait, stair, and standing march activities. Pt able to complete 3 step ups/downs using bilateral hand held support. Goals Bed Mobility Goal Independent Transfer Goal Independent,Four Wheeled Walker Gait Goal Independent,Four Wheel Walker Gait Distance 150 Other Goals improve ambulation without AD / quad cane 100 ft SBA up/down 3 steps B rails SBA Days to Meet Goals 5 Frequency of Treatment Frequency Of Treatment Once a Day Treatment Plan Physical Therapy Treatment Plan Bed Mobility Training,Transfer Training,Gait Training, Therapeutic Exercise,Balance Retraining,Discharge Planning, Hot or Cold Pack,Neuromuscular Re-ed,Coordination Retraining Recommendations To Nursing Amount of Assist Needed 1 Person Assist Discharge Recommendations PT Discharge Recommendations Home with Assistance Transportation Needs at Discharge Private Vehicle
[2020-05-25 10:15] VITALS: O2SAT 95
--- NOTE | 2020-05-25 11:53 | P.DS_ITS ---
History of Present Illness History of Present Illness Date Patient Seen: 05/24/20 Chief complaint: syncope Narrative: Written by Anali KEARNS: Nubia Rubio is an 85-year-old female nonsmoker with a history of aortic stenosis, TAVR, coronary artery disease with 2 stents, diabetes and hyperlipidemia presents with a chief complaint of a witnessed, unprovoked syncopal episode just prior to arrival. She was in the kitchen cooking when she began to get dizzy and called for her son who she lives with. Her son assisted her to the floor and called 911. Son stated he believed she was out for 2 minutes. She does not recall loosing consciousness and does not remember the episode. Upon regaining consciousness, she relatively quickly returned to her baseline but again could not recall what happened. She had been in her normal state of health with no complaints up until the episode. She denies any changes in her medications or diet. She denies any recent head injuries or trauma. She has had no fever, sore throat, cough, chest pain or shortness of breath. She has chronic urinary incontinence chronic occasional constipation but denies diarrhea. She states her left leg is chronically swollen since sustaining an ankle injury requiring 16 screws. 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 She sees Dr. Luna, [facility] in [facility]. She presented to the ED with stable vital signs and is largely in the absence of any symptoms. CT of the head was negative for an acute intracranial process, chest XR or was within normal limits. She was very hypertensive when she pre sented to the emergency department with the presenting blood pressure of 225/104 and was provided her evening blood pressure medications of amlodipine and losartan. Patient was afebrile, her blood pressure has been quite high and currently it is 211/74, heart rate 57, respiratory rate 18, oxygen saturation 99% on room air, she weighs 68 kg with a BMI of 23.5. She is mildly anemic with hematocrit of 34.6, age related D timer is within normal limits, she is slightly hyponatremic at 132, glucose is 153, lactate is 1.3, calcium 9.2, magnesium 2.1, alk-phos was elevated at 142, and COVID PCR was negative. Discharge Providers Provider Date of admission: 05/23/20 23:24 Discharge Date: 05/25/20 Consults: 05/24/20 01:06 Consult to Physical Therapy Evaluate & Treat Comment: Near fall and syncope Physician Instructions: Evaluate and Treat Discharge provider: Lala Das DO Summary Hospital Course Discharge Diagnosis: 1. Acute syncopal episode, not present on admission. Resolved. 2. Acute urinary tract infection, present on admission. Active. 3. Acute hypertensive urgency with mildly elevated troponin, present on admission. Resolved. 4. Coronary artery disease, chronic, present on admission. Stable. 5. Mild hyponatremia, acute present on admission 6. Diabetes mellitus type 2, non-insulin using, chronic, present on admission. Stable. 7. Overactive bladder, chronic, present on admission. Stable. 8. Trigeminal neuralgia, chronic, present on admission. Stable. 9. Hyperlipidemia, chronic, present on admission. Stable. Hospital Course: Nubia Rubio is an 85-year-old female nonsmoker with a history of aortic stenosis status post TAVR, coronary artery disease with 2 stents, hypertension, hyperlipidemia, diabetes mellitus type 2, non-insulin using, who presented to the ED after a witnessed, unprovoked syncopal episode. 1. Acute syncopal episode, not present on admission. Resolved. -Differential diagnosis includes: Reflexive versus cardiogenic versus neurogenic. CT brain negative and ruled out neurogenic etiology. Likely secondary to UTI versus reflexive or cardiogenic etiology. Another possibility is oxcarbazepine may have caused dizziness and precipitated syncope as this is a new medication to the patient? -CT brain without contrast did not demonstrate any acute intracranial abnormalities. -Continued to monitor closely on telemetry. The patient remained in sinus rhythm and mild sinus bradycardia heart rate high 50s throughout entire hospitalization without significant ectopy. -Limited echocardiogram did not demonstrate any significant changes from previous echocardiogram 2 months ago. -Could consider outpatient cardiac monitoring if patient has recurrence of presyncope or syncope. 2. Acute urinary tract infection, present on admission. Active. -Patient endorsed mild symptoms including urinary urgency (see although has overactive bladder), hesitancy and frequency. -Urine culture preliminarily growing Gram-negative bacilli. Patient discharged home on cefdinir 300 mg twice daily. 3. Acute hypertensive urgency with mildly elevated troponin, present on admission. Resolved. -Initial blood pressure 225 /104. -Troponin was mildly elevated at 0.047 and trended down to 0.039 with control of blood pressure. No need to further trend. -Continued home diltiazem 180 mg daily, amlodipine increased from 2.5 mg daily to 10 mg daily and losartan increased from 50 mg daily to 50 mg twice daily. -Continued to monitor blood pressure closely which improved with SBP 140s to 150s. Recommended continued close monitoring and treatment of high blood pressure as an outpatient. 4. Coronary artery disease, chronic, present on admission. Stable. -Patient has history of coronary stents and TAVR. -Continued home aspirin 325 mg daily. CHADS2 Vasc 5 and patient has previously declined anticoagulation per Cardiology records. 5. Mild hyponatremia, acute present on admission -Hyponatremia is a possible side effect of oxcarbazapine. -Initial sodium 132 and sodium remained stable at 131. Received 1 L of NS in ED. Continued to monitor sodium level daily. Could consider discontinuation if patient has persistent or worsening hyponatremia per PCP. 6. Diabetes mellitus type 2, non-insulin using, chronic, present on admission. Stable. -Hemoglobin A1c 6.2% indicative of excellent glycemic control. -Held home metformin. -Continued [facility] blood glucose checks and low-dose correctional scale insulin. -Continued heart healthy/carbohydrate consistent diet. 7. Overactive bladder, chronic, present on admission. Stable. -Continued oxybutynin 10 mg daily. 8. Trigeminal neuralgia, chronic, present on admission. Stable. -Continued oxcarbazapine 600 mg daily. 9. Hyperlipidemia, chronic, present on admission. Stable. -Fasting lipid panel demonstrated poor lipid control with: Total cholesterol 233, triglycerides 145, LDL 148, and HDL 56. -Started patient on atorvastatin 40 mg daily at bedtime it is unclear why patient was not on statin therapy previously. Exam Vital Signs (past 8 hours): - 05/25/20 04:57 05/25/20 05:00 05/25/20 07:33 Temperature 98.7 F 97.4 F L Pulse Rate 54 L Pulse Rate [Orthostatic Lying] 58 L Pulse Rate [Orthostatic Sitting] 71 Pulse Rate [Orthostatic Standing] 70 Respiratory Rate 20 14 Blood Pressure 149/66 H Blood Pressure [Orthostatic Lying] 174/72 H Blood Pressure [Orthostatic Sitting] 150/85 H Blood Pressure [Orthostatic Standing] 136/67 Pulse Oximetry 95 05/25/20 10:15 Temperature Pulse Rate Pulse Rate [Orthostatic Lying] Pulse Rate [Orthostatic Sitting] Pulse Rate [Orthostatic Standing] Respiratory Rate Blood Pressure Blood Pressure [Orthostatic Lying] Blood Pressure [Orthostatic Sitting] Blood Pressure [Orthostatic Standing] Pulse Oximetry 95 Oxygen Delivery Method Room Air Oxygen Flow Rate 0 Narrative Exam Narrative: General: Elderly female sitting in bedside chair and in no acute distress, well-developed, well-nourished, appropriately interactive. HEENT: Normocephalic, atraumatic. External ears without defect. Pupils equal, round, and reactive to light. Anicteric sclerae, moist conjunctivae, and no lid lag. Oropharynx free of erythema and cobble stoning with moist mucosa. Neck: Supple with full range of motion. No lymphadenopathy or thyromegaly. Cardiovascular: Regular rhythm, mild bradycardia without murmurs, rubs, or gallops appreciated. Pulmonary: Clear to auscultation bilaterally without crackles, wheezes, or rhonchi. Normal respiratory effort with no use of accessory muscles. Abdomen: Soft, bowel sounds present, nontender, nondistended. No suprapubic or CVA tenderness. Extremities: No clubbing, cyanosis, or edema. Skin: Normal temperature, turgor, and texture; no rash, ulcers, or subcutaneous nodules appreciated. Neurological: Cranial nerves grossly intact. Psychiatric: Normal mood and affect. Alert and oriented to person, place, and time. Objective Labs Result Diagrams: 05/24/20 03:43 05/25/20 05:35 Labs: Laboratory Results - last 24 hr 05/24/20 05/25/20 05/25/20 11:47 05:35 05:35 Sodium 131 L Potassium 4.2 Chloride 102 Carbon Dioxide 27 BUN 24 H Creatinine 0.84 Estimated GFR > 60.0 BUN/Creatinine Ratio 28.6 H Glucose 136 H Calcium 8.6 Magnesium 2.2 TSH 2.49 Urine Color Yellow Urine Appearance Cloudy Urine pH 6.5 Ur Specific [place] 1.015 Urine Protein 2+ H Urine Glucose (UA) Negative Urine Ketones Negative Urine Occult Blood Trace-lysed Urine Nitrate Positive H Urine Bilirubin Negative Urine Urobilinogen 0.2 Ur Leukocyte Esterase Trace H Urine RBC 0-1/hpf Urine WBC 1-5/hpf Urine Bacteria Many (>30) H Ur Culture Indicated? Specimen cultured Discharge Plan Discharge Plan Patient Disposition: Home Provider Discharge Comment: You are being discharged home. You have a urinary tract infection and have been prescribed cefdinir 300 mg twice daily for 5 days. Please call first thing Thursday to your primary care physician's office to assure that the bacteria in your urine is sensitive to the antibiotic. Your blood pressure medication has been adjusted and your amlodipine has been increased from 2.5 mg to 10 mg daily and your losartan has been increased from 50 mg daily to 50 mg twice daily. Please monitor your blood pressure and keep a log at home (2 measurements in the morning and 2 in the evening by 10 minutes) to take to all your doctor's appointments. Please use correct blood pressure technique including sitting in a chair with your back supported, feet planted on the floor, cuff at the level of your heart, with your arm resting on a hard surface and stationary for 5 minutes prior to measurement. Discharge orders & Medications Prescriptions: New amlodipine [Norvasc] 5 mg Tablet 10 mg PO DAILY Qty: 30 RF: 0 atorvastatin 40 mg tablet 40 mg PO BEDTIME Qty: 30 RF: 0 cefdinir 300 mg capsule 300 mg PO BID Qty: 10 RF: 0 Continued metformin 500 mg tablet 500 mg PO DAILY RF: 0 oxybutynin chloride 10 mg tablet extended release 24hr 10 mg PO DAILY RF: 0 diltiazem HCl 180 mg capsule,extended release 24hr 180 mg PO DAILY RF: 0 Oxtellar XR 600 mg tablet extended release 24 hr 600 mg PO DAILY RF: 0 magnesium 500 mg Tablet 500 mg PO DAILY RF: 0 aspirin 81 mg Tablet 300 mg PO DAILY RF: 0 Changed losartan 50 mg tablet 50 mg PO BID Qty: 60 RF: 0 Discontinued amlodipine 2.5 mg tablet 2.5 mg PO BEDTIME RF: 0 Follow up/Referrals: Donna Amador PA-C [[facility]] - (PLEASE CALL JULIEN AMADOR'S OFFICE FIRST THING Thursday TO SCHEDULE A FOLLOW UP APPOINTMENT AND CONFIRM THAT THE BACTERIA IN YOUR URINE IS SENSITIVE TO THE ANTIBIOTIC YOU HAVE BEEN PRESCRIBED.) Diet/Activity/Treatments Diet: Low-fat, Low-sodium and Low-cholesterol Activity: Activity as tolerated Visit Report/Discharge Packet Instructions: DI for Syncope in Adults (Fainting), The Mediterranean Diet and Good Health, The DASH Diet, Essential Hypertension, DI for Urinary Tract Infection (UTI), How to Prevent Falls Discharge Data Attending Provider: Anali Quijano VTE Deep Vein Thrombosis/Pulmonary Embolism Present on Admission: No
--- NOTE | 2020-05-25 12:51 | CM.DPNOTE ---
DC Note DC order placed today; patient has been cleared by physical therapy for return home w/son and DIl to assist, no needs identified from this [employer] P: DC back home w/family via pov, close outpatient f/u recommended JW
--- NOTE | 2020-05-25 13:26 | PC.NURSE ---
DISCHARGE: LATE ENTRY: PATIENT'S SON ARRIVED TO TIN ASSORTER PATIENT JUST AFTER REVIEWED ALL OF PATIENT'S DC HOME PAPERWORK AND NEW SCRIPTS WITH PATIENT. SHE CONFIRMS UNDERSTANDING AND WILL F/U WITH HER PCP ON THURSDAY REGARDING HER SENSITIVITIES AND SCHEDULE HER F/U APPOINTMENT. PATIENT TAKEN BY WC WITH ALL BELONGINGS, EXCEPT HER LITTLE RED ADDRESS BOOK WAS LEFT BEHIND. CALLED PATIENT ON HER CELL AND NOTIFIED HER SON THAT SHE HAD LEFT IT AND THAT IT WILL BE WAITING AT THE [facility] WITH HER NAME ON IT FOR HIM TO COME PICK IT UP. HE STATES IT WILL BE A FEW DAYS. ASSURED THAT WOULD BE FINE.
== END 2020-05-25 10:50 | disposition home or self-care (01) ==
LOC: ED 22:53 → AC 23:26
PROVIDERS: Internal Medicine; Admitting Provider Nurse Practitioner Family; Emergency Provider Emergency Medicine; Visit Provider Nurse Practitioner Family
DX: R55 Syncope and collapse (principal); I25.10 Atherosclerotic heart disease of native coronary artery without angina pectoris; N39.0 Urinary tract infection, site not specified; I16.0 Hypertensive urgency; R77.8 Other specified abnormalities of plasma proteins; E11.9 Type 2 diabetes mellitus without complications; N32.81 Overactive bladder; G50.0 Trigeminal neuralgia; E78.5 Hyperlipidemia, unspecified; Z79.84 Long term (current) use of oral hypoglycemic drugs; Z11.59 Encounter for screening for other viral diseases
CPT/HCPCS: 36415; 70450; 71045; 71275; 80048; 80053; 80061; 81001; 82550; 82962; 83036; 83605; 83735; 83880; 84443; 84484; 85025; 85379; 85610; 87077; 87086; 87186; 87635; 93005; 93306; 96360; 96361; 96372; 97110; 97116; 97161; 99284; G0378; J1650